=== PATIENT | female | born 1975 | race Caucasian/White ===

== ENCOUNTER 2018-10-02 05:27 | Inpatient (IN) | payer OTHER, BC ==
[2018-10-02] MEDS: CEFAZOLIN 2 GM/50 ML (PMX) 50 ML IVPB (06:00)
[2018-10-02] MEDS ORDERED: FENTAnyl 50 MCG/ML VIAL IV ×3 (07:30)
[2018-10-02] MEDS ORDERED: DIPHENHYDRAMINE 50 MG INJ IV (07:30)
[2018-10-02] MEDS ORDERED: KETOROLAC 30 MG INJ IV (07:30)
[2018-10-02] MEDS ORDERED: MEPERIDINE 25 MG INJ IV (07:30)
[2018-10-02] MEDS ORDERED: ALBUTEROL 0.083% (NEB) 2.5 MG/3 ML AMP HHN (07:30)
[2018-10-02] MEDS ORDERED: HYDROmorphONE 1 MG/5 ML IV SYRINGE IV (07:30)
[2018-10-02] MEDS ORDERED: MIDAZOLAM 1 MG/ML 2 ML INJ (07:37)
[2018-10-02] MEDS ORDERED: PROPOFOL 20 ML (07:37)
[2018-10-02] MEDS ORDERED: CEFAZOLIN 1 GM INJ (07:37)
[2018-10-02] MEDS ORDERED: KETOROLAC 30 MG INJ (07:38)
[2018-10-02] MEDS ORDERED: METOCLOPRAMIDE 10 MG INJ ×2 (07:38→10:19)
[2018-10-02] MEDS ORDERED: ONDANSETRON 4 MG INJ (07:38)
[2018-10-02] MEDS ORDERED: morphine SULFATE/PF (10 MG/10 ML) INJ (07:38)
[2018-10-02] MEDS ORDERED: EPHEDrine 25 MG/5 ML SYG (08:02)
[2018-10-02] MEDS ORDERED: ROCURONIUM 50 MG INJ (08:19)
[2018-10-02] MEDS: METOCLOPRAMIDE 10 MG INJ IV (10:30)
[2018-10-02] MEDS ORDERED: ALBUTEROL 18 GM INHALER INH (10:30)
[2018-10-02] MEDS ORDERED: ONDANSETRON INJ 6 MG in DEXTROSE 5% 50 ML IVPB (10:30)
[2018-10-02] MEDS ORDERED: ZOLPIDEM 5 MG TAB PO (10:30)
[2018-10-02] MEDS ORDERED: DIPHENHYDRAMINE 50 MG CAP PO (10:30)
[2018-10-02] MEDS ORDERED: HYDROCODONE/APAP (5/325) TAB PO ×2 (10:30)
[2018-10-02] MEDS: HYDROmorphONE 1 MG/5 ML IV SYRINGE IV ×2 (10:33→10:45)
[2018-10-02] MEDS: METOCLOPRAMIDE 10 MG TAB PO ×3 (11:56→23:39)
[2018-10-02] MEDS: KETOROLAC 30 MG INJ IV ×3 (11:56→23:39)
[2018-10-02] MEDS: LACTATED RINGER'S 1,000 ML IV ×2 (11:58→16:17)
[2018-10-02] MEDS: ALBUTEROL HFA 8 GM INHALER INH ×3 (14:30→21:00)
[2018-10-02] MEDS: CEFAZOLIN 1 GM/50 ML (PMX) 50 ML IVPB ×2 (16:17→23:39)
[2018-10-02] MEDS: MOMETASONE 0.24 GM INHALER INH ×2 (20:17→21:47)
[2018-10-03] MEDS: ALBUTEROL HFA 8 GM INHALER INH ×4 (01:00→22:02)
[2018-10-03] MEDS: LACTATED RINGER'S 1,000 ML IV (01:22)
[2018-10-03 05:40] LABS: ADD MAN DIFF? NO
[2018-10-03 05:46] LABS: BASOPHILS % 0.2 % (0.0-2.0); EOSINOPHILS # 0.1 10^3/ul (0.0-0.5); HEMATOCRIT 28.9 % (37.0-47.0); HEMOGLOBIN 8.8 g/dl (12.0-16.0); LYMPHOCYTES # 1.1 10^3/ul (0.8-2.9); LYMPHOCYTES % 14.2 % (15.0-51.0); MEAN CORPUSCULAR HGB CONC 30.4 g/dl (32.0-37.0); MEAN CORPUSCULAR VOLUME 95.4 fl (82.0-101.0); MEAN PLATELET VOLUME 9.6 fl (7.4-10.4); MONOCYTE # 0.7 10^3/ul (0.3-0.9); MONOCYTES % 9.2 % (0.0-11.0); PLATELET COUNT 362 10^3/UL (140-415); RED BLOOD COUNT 3.03 10^6/ul (4.20-5.40); RED CELL DISTRIBUTION WIDTH 13.9 % (11.5-14.5)
[2018-10-03] MEDS: METOCLOPRAMIDE 10 MG TAB PO ×3 (05:57→18:17)
[2018-10-03] MEDS: KETOROLAC 30 MG INJ IV ×4 (05:57→21:59)
[2018-10-03 06:07] LABS: ANION GAP 4 (5-13); BLOOD UREA NITROGEN 8 mg/dl (7-20); CARBON DIOXIDE 27 mmol/L (21-31); CHLORIDE 107 mmol/L (97-110); CREATININE 0.65 mg/dl (0.44-1.00); SODIUM 138 mmol/L (135-144)
[2018-10-03] MEDS: MOMETASONE 0.24 GM INHALER INH ×2 (08:50→20:52)
[2018-10-03] MEDS: FLUTICASONE/VILANTEROL 100-25 INH (08:50)
[2018-10-03] MEDS: CEFAZOLIN 1 GM/50 ML (PMX) 50 ML IVPB (08:50)
[2018-10-03] MEDS: BISACODYL (EC) 5 MG TAB PO (11:42)
[2018-10-03] MEDS: SOD FERRIC GLUC COMPLX 125 MG in SOD CHLORIDE 0.9% 100 ML IVPB (13:49)
[2018-10-03 15:25] LABS: ADD UMIC NO; UR ASCORBIC ACID NEGATIVE (NEGATIVE); UR BILIRUBIN (Dip) NEGATIVE (NEGATIVE); UR BLOOD (Dip) NEGATIVE (NEGATIVE); UR CLARITY CLEAR (CLEAR); UR COLOR COLORLESS (YELLOW); UR GLUCOSE (Dip) NEGATIVE (NEGATIVE); UR KETONES (Dip) NEGATIVE (NEGATIVE); UR LEUKOCYTE ESTERASE (Dip) NEGATIVE Leu/ul (NEGATIVE); UR NITRITE (Dip) NEGATIVE (NEGATIVE); UR SPECIFIC GRAVITY (Dip) 1.003 (1.003-1.030); UR TOTAL PROTEIN (Dip) NEGATIVE (NEGATIVE); UR UROBILINOGEN (Dip) NEGATIVE (NEGATIVE)
[2018-10-04] MEDS: METOCLOPRAMIDE 10 MG TAB PO ×5 (01:00→23:34)
[2018-10-04] MEDS: KETOROLAC 30 MG INJ IV ×4 (06:11→23:34)
[2018-10-04] MEDS: FLUTICASONE/VILANTEROL 100-25 INH (08:20)
[2018-10-04] MEDS: MOMETASONE 0.24 GM INHALER INH ×2 (08:20→23:35)
[2018-10-04] MEDS: SOD FERRIC GLUC COMPLX 125 MG in SOD CHLORIDE 0.9% 100 ML IVPB (12:41)
[2018-10-05] MEDS: KETOROLAC 30 MG INJ IV (05:33)
[2018-10-05] MEDS: METOCLOPRAMIDE 10 MG TAB PO ×2 (05:34→12:17)
[2018-10-05 06:11] LABS: ADD MAN DIFF? NO
[2018-10-05 06:12] LABS: BASOPHIL # 0.1 10^3/ul (0.0-0.1); BASOPHILS % 0.6 % (0.0-2.0); EOSINOPHILS # 0.2 10^3/ul (0.0-0.5); EOSINOPHILS % 2.3 % (0.0-7.0); HEMATOCRIT 29.6 % (37.0-47.0); HEMOGLOBIN 8.9 g/dl (12.0-16.0); LYMPHOCYTES # 1.4 10^3/ul (0.8-2.9); LYMPHOCYTES % 14.1 % (15.0-51.0); MEAN CORPUSCULAR HGB CONC 30.1 g/dl (32.0-37.0); MEAN CORPUSCULAR VOLUME 93.1 fl (82.0-101.0); MEAN PLATELET VOLUME 10.1 fl (7.4-10.4); MONOCYTES % 9.3 % (0.0-11.0); NEUTROPHIL # 7.5 10^3/ul (1.6-7.5); NEUTROPHILS % 73.1 % (39.0-77.0); PLATELET COUNT 412 10^3/UL (140-415); RED BLOOD COUNT 3.18 10^6/ul (4.20-5.40); RED CELL DISTRIBUTION WIDTH 13.7 % (11.5-14.5)
[2018-10-05 06:12] LABS: WHITE BLOOD COUNT 10.2 10^3/ul (4.8-10.8)
[2018-10-05] MEDS: ALPRAZOLAM 0.25 MG TAB PO (07:09)
[2018-10-05] MEDS: MOMETASONE 0.24 GM INHALER INH (08:07)
[2018-10-05] MEDS: FLUTICASONE/VILANTEROL 100-25 INH (08:07)
== END 2018-10-05 13:13 | disposition home or self-care (01) | DRG 743 ==
LOC: REC 05:27 → MS1 10-03 01:40
PROC: 0UT90ZZ Resection of Uterus, Open Approach (ICD-10-PCS; principal; 2018-10-02 07:30)
PROC: 0UB90ZZ Excision of Uterus, Open Approach (ICD-10-PCS; 2018-10-02 07:30)
PROC: 0UT70ZZ Resection of Bilateral Fallopian Tubes, Open Approach (ICD-10-PCS; 2018-10-02 07:30)
PROC: 0U5 Female Reproductive System, Destruction (ICD-10-PCS; 2018-10-02 07:30)
DX: D25.9 Leiomyoma of uterus, unspecified (principal); N92.1 Excessive and frequent menstruation with irregular cycle; D50.0 Iron deficiency anemia secondary to blood loss (chronic); N94.89 Other specified conditions associated with female genital organs and menstrual cycle; F41.9 Anxiety disorder, unspecified
CPT/HCPCS: 71045; 80051; 81003; 82565; 84520; 85025; 86850; 86900; 86901; 86920; 87086; 88302; 88305; 93005